=== PATIENT | female | born 1955 | race Caucasian/White ===

== ENCOUNTER 2024-05-19 15:58 | Emergency (ER) | payer MEDICARE ==
[~2024-05-19] VITALS: Ht 172.7 cm; Wt 62.6 kg
[2024-05-19] MEDS ORDERED: Acetaminophen 500 MG Tab PO ONE (16:20)
== END 2024-05-19 17:18 | disposition home or self-care (01) ==
LOC: ER 15:58
DX: S00.03XA Contusion of scalp, initial encounter (principal); S50.01XA Contusion of right elbow, initial encounter; W18.30XA Fall on same level, unspecified, initial encounter; Z88.0 Allergy status to penicillin; Z88.5 Allergy status to narcotic agent
CPT/HCPCS: 99283; A9270